=== PATIENT | male | born 1970 | race American Indian/Alaskan Native ===

== ENCOUNTER 2018-09-15 21:41 | Inpatient (IN) | payer MEDICARE, MEDICAID ==
[2018-09-15] MEDS ORDERED: Lactated Ringers 1,000 ML IV SCH (22:00)
[2018-09-15] MEDS ORDERED: Piperacillin/Tazobactam 4.5 GM in Sodium Chloride 0.9% 100 ML IV ONE (22:01)
--- NOTE | 2018-09-15 22:07 | EDM.PDOC ---
ED HPI GENERAL MEDICAL PROBLEM - General Chief Complaint: General Stated Complaint: MEDICAL [facility] Time Seen by Provider: 09/15/18 21:54 Source of Information: Reports: Patient, RN Notes Reviewed History Limitations: Reports: No Limitations - History of Present Illness INITIAL COMMENTS - FREE TEXT/NARRATIVE: 48-year-old gentleman who is a quadriplegic lives at home with family has developed a fever over the last 24 hours recently was treated with Macrobid for urinary tract infection does have suprapubic catheter states he's been having difficulty breathing feel short of breath for the last week or so no sputum production - Related Data Allergies Allergy/AdvReac Type Severity Reaction Status Date / Time vancomycin Allergy Severe Hives Verified 09/15/18 21:57 levofloxacin Allergy Rash Verified 09/15/18 21:57 Home Meds: Home Meds Acetaminophen 650 mg PO Q8H PRN 09/15/18 [History] Acetic Acid [Acetic Acid 0.25%] 1 - 100 ml IRR DAILY 09/15/18 [History] Ascorbic Acid 1,000 mg PO DAILY 09/15/18 [History] Calcium Acetate [PhosLo] 1 cap PO TID 09/15/18 [History] Cholecalciferol (Vitamin D3) [Vitamin D3] 1,000 unit PO DAILY 09/15/18 [History] Citric AC/Gluconolact/Mag Carb [Renacidin Irrigation Solution] 50 ml IRR DAILY 09/15/18 [History] Cyanocobalamin (Vitamin B-12) [Cyanocobalamin Injection] 1,000 mcg IM ASDIRECTED 09/15/18 [History] Cyclobenzaprine [Flexeril] 5 - 10 mg PO TID PRN 09/15/18 [History] DULoxetine [Cymbalta] 60 mg PO DAILY 09/15/18 [History] Desipramine HCl [Norpramin] 10 mg PO BEDTIME 09/15/18 [History] Gabapentin [Neurontin] 800 mg PO BEDTIME 09/15/18 [History] Gabapentin [Neurontin] 900 mg PO BID 09/15/18 [History] Labetalol HCl [Labetalol] 100 mg PO BID 09/15/18 [History] Loratadine 10 mg PO DAILY 09/15/18 [History] Multivitamin [Multi-Vitamin Daily] 1 each PO DAILY 09/15/18 [History] Nitrofurantoin Macrocrystal [Macrodantin] 100 mg PO BEDTIME 09/15/18 [History] Nitroglycerin [Nitrostat] 1 tab SL ASDIRECTED PRN 09/15/18 [History] Omeprazole 20 mg PO DAILY 09/15/18 [History] Rivaroxaban [Xarelto] 20 mg PO DAILY 09/15/18 [History] Sennosides/Docusate Sodium [Senna-Docusate Sodium Tablet] 2 tab PO BID PRN 09/15 [History] Solifenacin [Vesicare] 5 mg PO DAILY 09/15/18 [History] Zinc Sulfate 220 mg PO DAILY 09/15/18 [History] diphenhydrAMINE [Benadryl] 25 mg PO BEDTIME PRN 09/15/18 [History] traZODone HCl [Trazodone HCl] 50 mg PO BEDTIME PRN 09/15/18 [History] Past Medical History Cardiovascular History: Reports: Blood Clots/VTE/DVT, Hypertension Gastrointestinal History: Reports: Other (See Below) (Colostomy) Genitourinary History: Reports: Neurogenic Bladder Musculoskeletal History: Denies: None Neurological History: Reports: Other (See Below) Other Neuro History: Quadriplegia Social & Family History - Tobacco Use Smoking Status *Q: Unknown Ever Smoked ED ROS GENERAL - Review of Systems Review Of Systems: See Below Constitutional: Reports: Fever, Chills HEENT: Reports: No Symptoms Respiratory: Reports: No Symptoms Cardiovascular: Reports: No Symptoms GI/Abdominal: Reports: No Symptoms : Reports: No Symptoms (CR) Musculoskeletal: Reports: Shoulder Pain (Right) Skin: Reports: Wound (Chronic sacral ulcer) ED EXAM, GENERAL - Physical Exam Exam: See Below Free Text/Narrative:: General: Male, not in any distress however audible rhonchi are appreciated, alert and oriented x3 HEENT: head is atraumatic normocephalic, eyes pupils equal round reactive to light, sclera clear no conjunctivitis appreciated. Ears tympanic membranes clear and vega landmarks and light reflex are present bilaterally canals are clear. Nose no septal deviation, nares are clear, no blood present. Mouth mucosa is moist and pink no erythema or exudate noted in soft palate, tongue is midline uvula is midline, dentition is intact. Neck: Supple no thyromegaly no tracheal deviation. Nodes: Cervical nodes subclavicular nodes nontender no palpable lymphadenopathy noted. Lungs: Bilateral rhonchi with the lower lung solorzano CV: Regular rate and rhythm S1 and S2 appreciated no murmurs rubs or gallops noted. Abdomen: Soft, nontender, no palpable masses or organomegaly appreciated, no distention no guarding bowel sounds are present, . Neuro: Quadriplegia with minimal movement in the right arm, Skin: Warm and dry, intact Extremities: Trace edema bilaterally pedal pulse is +2. Course - Vital Signs Last Recorded V/S: Last Vital Signs Temp 100.1 F 09/15/18 23:00 Pulse 97 09/15/18 23:00 Resp 20 09/15/18 23:00 BP 119/74 09/15/18 23:00 Pulse Ox 99 09/15/18 23:00 - Orders/Labs/Meds Orders: Active Orders 24 hr Category Date Time Status EKG Documentation Completion [RC] ASDIRECTED Care 09/15/18 22:02 Active Vital Signs [RC] Q1H Care 09/15/18 22:00 Active CULTURE BLOOD [BC] Urgent Lab 09/15/18 22:30 Received CULTURE BLOOD [BC] Urgent Lab 09/15/18 22:45 Received UA W/MICROSCOPIC [URIN] Urgent Lab 09/15/18 21:59 Ordered Lactated Ringers [Ringers, Lactated] 1,000 ml Med 09/15/18 22:00 Active IV ASDIRECTED Blood Culture x2 Reflex Set [OM.PC] Urgent Oth 09/15/18 22:00 Ordered EKG 12 Lead [EK] Stat Ther 09/15/18 22:02 Ordered Medication Orders Lactated Ringer's (Ringers, Lactated) 1,000 mls @ 999 mls/hr IV ASDIRECTED ANDREI Last Admin: 09/15/18 23:30 Dose: 999 mls/hr Labs: Laboratory Tests 09/15/18 09/15/18 09/15/18 Range/Units 22:30 22:30 22:30 WBC 17.8 H (4.5-11.0) K/uL RBC 5.06 (4.30-5.90) M/uL Hgb 13.7 (12.0-15.0) g/dL Hct 43.0 (40.0-54.0) % MCV 85 (80-98) fL MCH 27 (27-31) pg MCHC 32 (32-36) % Plt Count 417 H (150-400) K/uL Neut % (Auto) 80 H (36-66) % Lymph % (Auto) 12 L (24-44) % [place] % (Auto) 7 H (2-6) % Eos % (Auto) 1 L (2-4) % Baso % (Auto) 0 (0-1) % Sodium 138 L (140-148) mmol/L Potassium 3.6 (3.6-5.2) mmol/L Chloride 102 (100-108) mmol/L Carbon Dioxide 22 (21-32) mmol/L Anion Gap 17.6 H (5.0-14.0) mmol/L BUN 9 (7-18) mg/dL Creatinine 0.6 L (0.8-1.3) mg/dL Est Cr Clr Drug Dosing 158.62 mL/min Estimated GFR (MDRD) > 60 (>60) Glucose 131 H (74-106) mg/dL Lactic Acid 3.2 H (0.4-2.0) mmol/L Calcium 8.7 (8.5-10.1) mg/dL Total Bilirubin 0.3 (0.2-1.0) mg/dL AST 19 (15-37) U/L ALT 26 (12-78) U/L Alkaline Phosphatase 135 H (46-116) U/L C-Reactive Protein 4.62 H (0.0-0.3) mg/dL NT-Pro-B Natriuret Pep (5-125) pg/mL Total Protein 8.1 (6.4-8.2) g/dL Albumin 3.0 L (3.4-5.0) g/dL Globulin 5.1 H (2.3-3.5) g/dL Albumin/Globulin Ratio 0.6 L (1.2-2.2) 09/15/18 Range/Units 22:30 WBC (4.5-11.0) K/uL RBC (4.30-5.90) M/uL Hgb (12.0-15.0) g/dL Hct (40.0-54.0) % MCV (80-98) fL MCH (27-31) pg MCHC (32-36) % Plt Count (150-400) K/uL Neut % (Auto) (36-66) % Lymph % (Auto) (24-44) % [place] % (Auto) (2-6) % Eos % (Auto) (2-4) % Baso % (Auto) (0-1) % Sodium (140-148) mmol/L Potassium (3.6-5.2) mmol/L Chloride (100-108) mmol/L Carbon Dioxide (21-32) mmol/L Anion Gap (5.0-14.0) mmol/L BUN (7-18) mg/dL Creatinine (0.8-1.3) mg/dL Est Cr Clr Drug Dosing mL/min Estimated GFR (MDRD) (>60) Glucose (74-106) mg/dL Lactic Acid (0.4-2.0) mmol/L Calcium (8.5-10.1) mg/dL Total Bilirubin (0.2-1.0) mg/dL AST (15-37) U/L ALT (12-78) U/L Alkaline Phosphatase (46-116) U/L C-Reactive Protein (0.0-0.3) mg/dL NT-Pro-B Natriuret Pep 46 (5-125) pg/mL Total Protein (6.4-8.2) g/dL Albumin (3.4-5.0) g/dL Globulin (2.3-3.5) g/dL Albumin/Globulin Ratio (1.2-2.2) Meds: Medications Generic Name Dose Route Start Last Admin Trade Name Freq PRN Reason Stop Dose Admin Lactated Ringer's 1,000 mls @ 999 mls/hr 09/15/18 22:00 09/15/18 23:30 Ringers, Lactated IV 999 mls/hr ASDIRECTED ANDREI Administration Discontinued Medications Generic Name Dose Route Start Last Admin Trade Name Freq PRN Reason Stop Dose Admin Piperacillin Sod/Tazobactam 100 mls @ 100 mls/hr 09/15/18 22:01 09/15/18 23: 30 Sod 4.5 gm/ Sodium Chloride IV 09/15/18 23:00 100 mls/hr ONETIME ONE Administration Departure - Departure Time of Disposition: 23:52 Disposition: Admitted As Inpatient 65 Condition: Fair Clinical Impression: Sepsis Qualifiers: Sepsis type: sepsis due to unspecified organism Sepsis acute organ dysfunction status: without acute organ dysfunction Qualified Code(s): A41.9 - Sepsis, unspecified organism - Discharge Information Referrals: PCP,None [Primary Care Provider] - Forms: ED Department Discharge - My Orders Last 24 Hours: My Active Orders 09/15/18 21:59 UA W/MICROSCOPIC [URIN] Urgent 09/15/18 22:00 Vital Signs [RC] Q1H Lactated Ringers [Ringers, Lactated] 1,000 ml IV ASDIRECTED Blood Culture x2 Reflex Set [OM.PC] Urgent 09/15/18 22:02 EKG Documentation Completion [RC] ASDIRECTED EKG 12 Lead [EK] Stat 09/15/18 22:30 CULTURE BLOOD [BC] Urgent 09/15/18 22:45 CULTURE BLOOD [BC] Urgent - Assessment/Plan Last 24 Hours: My Active Orders 09/15/18 21:59 UA W/MICROSCOPIC [URIN] Urgent 09/15/18 22:00 Vital Signs [RC] Q1H Lactated Ringers [Ringers, Lactated] 1,000 ml IV ASDIRECTED Blood Culture x2 Reflex Set [OM.PC] Urgent 09/15/18 22:02 EKG Documentation Completion [RC] ASDIRECTED EKG 12 Lead [EK] Stat 09/15/18 22:30 CULTURE BLOOD [BC] Urgent 09/15/18 22:45 CULTURE BLOOD [BC] Urgent Plan: Assessment Acuity = acute Site and laterality = sepsis complicated the patient with known history of quadriplegia Etiology = suspicious for urinary source Manifestations = fever Location of injury = Home Lab values = WBC elevated 17.8 consistent leukocytosis, lactic acid elevated 3.2 consistent lactic acidosis CRP elevated 4.6 to chest x-ray shows no acute process EKG demonstrates sinus rhythm there is no ST elevations or depressions T wave inversions in aVL, urinalysis pending, cultures pending Plan Called discussed case with hospitalist on-call at 23:30 kindly agreed to come and evaluate patient emergency department for admission thus far have initiated 1 L fluids have initiated antibiotics of Zosyn secondary to his levofloxacin allergy This note was dictated using [employer] voice recognition software please call with any questions on syntax or grammar.
--- NOTE | 2018-09-15 22:55 | CRLCR ---
INDICATION: Shortness of breath TECHNIQUE: Frontal view of the chest. COMPARISON: None FINDINGS: There is mild left basilar atelectasis. The lungs are otherwise clear. The cardiomediastinal silhouette is normal. There is no sizable pleural effusion or pneumothorax. Incidental note is made of chronic deformity of the medial margin of the left humerus. IMPRESSION: Mild left basilar atelectasis. No pulmonary consolidation, pleural effusion or pneumothorax. Dictated by Jhon Montes De Oca MD @ Sep 15 2018 10:53PM Signed by Dr. Jhon Montes De Oca @ Sep 15 2018 10:53PM
[2018-09-15] MEDS ORDERED: Ibuprofen 600 MG Tab PO ONE (23:49)
[2018-09-16] MEDS ORDERED: LORazepam 2 MG/ML SDV IVPUSH ONE (00:02)
--- NOTE | 2018-09-16 00:42 | PCM.HP ---
H&P History of Present Illness - General Date of Service: 09/16/18 Admit Problem/Dx: Admission Diagnosis/Problem Admission Diagnosis/Problem Acute bronchitis Source of Information: Patient, Provider History Limitations: Reports: No Limitations - History of Present Illness Initial Comments - Free Text/Narative: CC: I can't breath good HPI: Edilberto presents to the emergency room today with one week of progressive shortness of breath and loose cough. Today he developed subjective fevers at home. He felt his shortness of breath was more impressive than with the fevers he was worried about infection so he came in to get checked out. He has not been able to produce sputum so far but has a loose rattly cough that is audible throughout the room. He feels "itchy" in the lungs but does not have any pleuritic pain or chest pain. He has not had any nausea or abdominal pain. No change in output and his colostomy. He reports his urine has been clear. He does not feel like this is a urinary tract infection as he usually gets a bad headache when he has one of these. He has not had recent headaches. Appetite has been good. He does report that he may have choked on a Taco today. He does have several sick contacts with nieces and nephews who have had recent respiratory infections. Workup in the emergency room was concerning for sepsis with tachycardia, lactic acidosis. Urine is still not collected. Chest x-ray clear but exam consistent with acute bronchitis and the patient is hypoxic requiring supplemental oxygen. He has leukocytosis and fever. Blood cultures have been obtained. Broad- spectrum antibiotics administered. He will be admitted for further management. - Related Data Allergies/Adverse Reactions: Allergies Allergy/AdvReac Type Severity Reaction Status Date / Time vancomycin Allergy Severe Hives Verified 09/15/18 21:57 levofloxacin Allergy Rash Verified 09/15/18 21:57 Home Medications: Home Meds Acetaminophen 650 mg PO Q8H PRN 09/15/18 [History] Acetic Acid [Acetic Acid 0.25%] 1 - 100 ml IRR DAILY 09/15/18 [History] Ascorbic Acid 1,000 mg PO DAILY 09/15/18 [History] Calcium Acetate [PhosLo] 1 cap PO TID 09/15/18 [History] Cholecalciferol (Vitamin D3) [Vitamin D3] 1,000 unit PO DAILY 09/15/18 [History] Citric AC/Gluconolact/Mag Carb [Renacidin Irrigation Solution] 50 ml IRR DAILY 09/15/18 [History] Cyanocobalamin (Vitamin B-12) [Cyanocobalamin Injection] 1,000 mcg IM ASDIRECTED 09/15/18 [History] Cyclobenzaprine [Flexeril] 5 - 10 mg PO TID PRN 09/15/18 [History] DULoxetine [Cymbalta] 60 mg PO DAILY 09/15/18 [History] Desipramine HCl [Norpramin] 10 mg PO BEDTIME 09/15/18 [History] Gabapentin [Neurontin] 800 mg PO BEDTIME 09/15/18 [History] Gabapentin [Neurontin] 900 mg PO BID 09/15/18 [History] Labetalol HCl [Labetalol] 100 mg PO BID 09/15/18 [History] Loratadine 10 mg PO DAILY 09/15/18 [History] Multivitamin [Multi-Vitamin Daily] 1 each PO DAILY 09/15/18 [History] Nitrofurantoin Macrocrystal [Macrodantin] 100 mg PO BEDTIME 09/15/18 [History] Nitroglycerin [Nitrostat] 1 tab SL ASDIRECTED PRN 09/15/18 [History] Omeprazole 20 mg PO DAILY 09/15/18 [History] Rivaroxaban [Xarelto] 20 mg PO QPM 09/15/18 [History] Sennosides/Docusate Sodium [Senna-Docusate Sodium Tablet] 2 tab PO BID PRN 09/15 [History] Solifenacin [Vesicare] 5 mg PO DAILY 09/15/18 [History] Zinc Sulfate 220 mg PO DAILY 09/15/18 [History] diphenhydrAMINE [Benadryl] 25 mg PO BEDTIME PRN 09/15/18 [History] traZODone HCl [Trazodone HCl] 50 mg PO BEDTIME PRN 09/15/18 [History] Past Medical History Cardiovascular History: Reports: Blood Clots/VTE/DVT, Hypertension Gastrointestinal History: Reports: Other (See Below) (Colostomy) Genitourinary History: Reports: Neurogenic Bladder Musculoskeletal History: Denies: None Other Musculoskeletal History: quadriplegia Neurological History: Reports: Other (See Below) Other Neuro History: Quadriplegia Psychiatric History: Reports: Depression Endocrine/Metabolic History: Reports: Obesity/BMI 30+ Dermatologic History: Reports: Other (See Below) Other Dermatologic History: 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 cystostomy with drainage - Past Surgical History GI Surgical History: Reports: Colostomy Male Surgical History: Reports: Suprapubic Catheter Placement Social & Family History - Family History Cardiac: Denies: CAD - Tobacco Use Smoking Status *Q: Unknown Ever Smoked - Alcohol Use Alcohol Use History: No - Recreational Drug Use Recreational Drug Use: No H&P Review of Systems - Review of Systems: Review Of Systems: See Below Free Text/Narrative: A complete 12 point review of systems was obtained. Pertinent positives and negatives are noted in the history of present illness. All other systems were reviewed and were negative except as noted. Exam - Exam Exam: See Below - Vital Signs Vital Signs: Last Vital Signs Temp 37.8 C 09/15/18 23:00 Pulse 97 09/15/18 23:00 Resp 20 09/15/18 23:00 BP 119/74 09/15/18 23:00 Pulse Ox 99 09/15/18 23:00 Weight: 113.398 kg - Exam Quality Assessment: Supplemental Oxygen General: Alert, Oriented, Cooperative. No: Mild Distress HEENT: Conjunctiva Clear. No: Mucosa Moist & [place] (dry), Scleral Icterus Neck: Supple, Trachea Midline. No: Lymphadenopathy Lungs: Normal Respiratory Effort, Rhonchi (diffuse upper airway ) Cardiovascular: Regular Rhythm, Tachycardia. No: Systolic Murmur GI/Abdominal Exam: Normal Bowel Sounds, Soft, Non-Tender, No Distention, Other ( suprapubic catheter ) Extremities: No Pedal Edema. No: Increased Warmth Peripheral Pulses: 2+: Dorsalis Pedis (L), Dorsalis Pedis (R) Skin: Warm, Dry, Wound (black eschar right plantar surface at head of 1st metatarsal. Callus on left foot laterally at head of 5th metatarsal. both lesions are about 2 cm in diameter ) Neuro Extensive - Mental Status: Alert, Oriented x3, Nl Response to Commands Neuro Extensive - Motor, Sensory, Reflexes: Dysarthria (mild), Abnormal Motor ( can't move legs or left arm. Able to move right arm slightly. ). No: Tremor Psychiatric: Alert, Normal Affect - Patient Data Lab Results Last 24 hrs: Laboratory Results - last 24 hr 09/15/18 09/15/18 09/15/18 Range/Units 22:30 22:30 22:30 WBC 17.8 H (4.5-11.0) K/uL RBC 5.06 (4.30-5.90) M/uL Hgb 13.7 (12.0-15.0) g/dL Hct 43.0 (40.0-54.0) % MCV 85 (80-98) fL MCH 27 (27-31) pg MCHC 32 (32-36) % Plt Count 417 H (150-400) K/uL Neut % (Auto) 80 H (36-66) % Lymph % (Auto) 12 L (24-44) % [place] % (Auto) 7 H (2-6) % Eos % (Auto) 1 L (2-4) % Baso % (Auto) 0 (0-1) % Sodium 138 L (140-148) mmol/L Potassium 3.6 (3.6-5.2) mmol/L Chloride 102 (100-108) mmol/L Carbon Dioxide 22 (21-32) mmol/L Anion Gap 17.6 H (5.0-14.0) mmol/L BUN 9 (7-18) mg/dL Creatinine 0.6 L (0.8-1.3) mg/dL Est Cr Clr Drug Dosing 158.62 mL/min Estimated GFR (MDRD) > 60 (>60) Glucose 131 H (74-106) mg/dL Lactic Acid 3.2 H (0.4-2.0) mmol/L Calcium 8.7 (8.5-10.1) mg/dL Total Bilirubin 0.3 (0.2-1.0) mg/dL AST 19 (15-37) U/L ALT 26 (12-78) U/L Alkaline Phosphatase 135 H (46-116) U/L C-Reactive Protein 4.62 H (0.0-0.3) mg/dL NT-Pro-B Natriuret Pep (5-125) pg/mL Total Protein 8.1 (6.4-8.2) g/dL Albumin 3.0 L (3.4-5.0) g/dL Globulin 5.1 H (2.3-3.5) g/dL Albumin/Globulin Ratio 0.6 L (1.2-2.2) 09/15/18 Range/Units 22:30 WBC (4.5-11.0) K/uL RBC (4.30-5.90) M/uL Hgb (12.0-15.0) g/dL Hct (40.0-54.0) % MCV (80-98) fL MCH (27-31) pg MCHC (32-36) % Plt Count (150-400) K/uL Neut % (Auto) (36-66) % Lymph % (Auto) (24-44) % [place] % (Auto) (2-6) % Eos % (Auto) (2-4) % Baso % (Auto) (0-1) % Sodium (140-148) mmol/L Potassium (3.6-5.2) mmol/L Chloride (100-108) mmol/L Carbon Dioxide (21-32) mmol/L Anion Gap (5.0-14.0) mmol/L BUN (7-18) mg/dL Creatinine (0.8-1.3) mg/dL Est Cr Clr Drug Dosing mL/min Estimated GFR (MDRD) (>60) Glucose (74-106) mg/dL Lactic Acid (0.4-2.0) mmol/L Calcium (8.5-10.1) mg/dL Total Bilirubin (0.2-1.0) mg/dL AST (15-37) U/L ALT (12-78) U/L Alkaline Phosphatase (46-116) U/L C-Reactive Protein (0.0-0.3) mg/dL NT-Pro-B Natriuret Pep 46 (5-125) pg/mL Total Protein (6.4-8.2) g/dL Albumin (3.4-5.0) g/dL Globulin (2.3-3.5) g/dL Albumin/Globulin Ratio (1.2-2.2) Result Diagrams: 09/15/18 22:30 09/15/18 22:30 Imaging Impressions Last 24 hrs: Chest x-ray - images personally reviewed - lungs are clear with no obvious mass , infiltrate or effusion. EKG INTERPRETATION EKG Date: 09/15/18 Rhythm: NSR Rate (Beats/Min): 97 [place]: Normal P-Wave: Present QRS: Normal ST-T: Normal QT: Normal EKG Interpretation Comments: EKG image was personally reviewed in the emergency room today *Q Meaningful Use (ADM) - VTE Risk Assess *Q Each Risk Factor Represents 1 Point: Age 41 - 59 years, Obesity ( BMI > 25 kg/m2 ), Sepsis, Serious lung disease including pneumonia Total Score 1 Point Risk Factors: 4 Each Risk Factor Represents 2 Points: None Total Score 2 Point Risk Factors: 0 Each Risk Factor Represents 3 Points: History of DVT/PE Total Score 3 Point Risk Factors: 3 Each Risk Factor Represents 5 Points: None Total Score 5 Point Risk Factors: 0 Venous Thromboembolism Risk Factor Score *Q: 7 - Problem List (1) Acute bronchitis SNOMED Code(s): 56165567 ICD Code: J20.9 - ACUTE BRONCHITIS, UNSPECIFIED Status: Acute Current Visit: Yes Qualifiers: Bronchitis organism: unspecified organism Qualified Code(s): J20.9 - Acute bronchitis, unspecified (2) Sepsis SNOMED Code(s): 69147651 ICD Code: A41.9 - SEPSIS, UNSPECIFIED ORGANISM Status: Acute Current Visit: Yes Qualifiers: Sepsis type: sepsis due to unspecified organism Sepsis acute organ dysfunction status: without acute organ dysfunction Qualified Code(s): A41.9 - Sepsis, unspecified organism (3) Acute respiratory failure with hypoxia SNOMED Code(s): 88344118, 416542923 ICD Code: J96.01 - ACUTE RESPIRATORY FAILURE WITH HYPOXIA Status: Acute Current Visit: Yes (4) Quadriplegia following spinal cord injury SNOMED Code(s): 96029994 ICD Code: G82.50 - QUADRIPLEGIA, UNSPECIFIED Status: Chronic Current Visit: Yes (5) Neurogenic bladder SNOMED Code(s): 657888139 ICD Code: N31.9 - NEUROMUSCULAR DYSFUNCTION OF BLADDER, UNSPECIFIED Status : Chronic Current Visit: Yes Problem List Initiated/Reviewed/Updated: Yes Orders Last 24hrs: Active Orders 24 hr Category Date Time Status Patient Status Manage Transfer [TRANSFER] Routine ADT 09/16/18 00:31 Active EKG Documentation Completion [RC] ASDIRECTED Care 09/15/18 22:02 Active Vital Signs [RC] Q1H Care 09/15/18 22:00 Active CULTURE BLOOD [BC] Urgent Lab 09/15/18 22:30 Received CULTURE BLOOD [BC] Urgent Lab 09/15/18 22:45 Received UA W/MICROSCOPIC [URIN] Urgent Lab 09/15/18 21:59 Ordered Lactated Ringers [Ringers, Lactated] 1,000 ml Med 09/15/18 22:00 Active IV ASDIRECTED Blood Culture x2 Reflex Set [OM.PC] Urgent Oth 09/15/18 22:00 Ordered Resuscitation Status Routine Resus Stat 09/16/18 00:33 Ordered EKG 12 Lead [EK] Stat Ther 09/15/18 22:02 Ordered Medication Orders Lactated Ringer's (Ringers, Lactated) 1,000 mls @ 999 mls/hr IV ASDIRECTED ANDREI Last Admin: 09/15/18 23:30 Dose: 999 mls/hr Assessment/Plan Comment:: ASSESSMENT AND PLAN - Acute bronchitis with sepsis - also complicated by acute respiratory failure with hypoxia. Source of sepsis could less likely be the bladder with a chronic suprapubic catheter but patient does not feel symptoms are compatible and he reports urine has been clear recently. He is hypoxic and has a loose cough. He has potential sick contacts. He has had recent antibiotics. -Antibiotic coverage with Pip/Tazo and azithromycin -Supplement oxygen -IV fluids -Nebs starting in the morning -Repeat lactic acid level after hydration -Follow-up urine sample to rule this out as a source of infection Quadriplegia as the result of a traumatic injury - accident happened in 2009. Minimal movement of right arm but no movement of left arm or legs. 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 -Continue home medications Sacral ulcer - patient reports this is chronic and slowly healing. -Local wound cares Foot ulceration and callus - left foot has a large callus on the lateral portion and right foot has a large eschar on the medial portion. Seem to be related to chronic pressure issues. 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 I reasonably expect the patient will require inpatient services that span a period time over 2 midnights. I reasonably expect this patient to be discharged or transferred within 96 hours after admission to the [facility]. Disposition - I would anticipate discharge home after the hospital stay Primary care physician - Dr. Jorge in [place] Wilmer Castillo M.D.
[2018-09-16] MEDS ORDERED: Albuterol 0.083% 2.5 MG/3 ML Neb Soln NEB PRN (01:32)
[2018-09-16] MEDS ORDERED: Ondansetron 4 MG/2 ML SDV IV PRN (01:32)
[2018-09-16] MEDS ORDERED: Magnesium Hydroxide 400 MG/5 ML Susp 30 ML Cup PO PRN (01:32)
[2018-09-16] MEDS ORDERED: Ibuprofen 600 MG Tab PO PRN (01:32)
[2018-09-16] MEDS ORDERED: Acetaminophen 325 MG Tab PO PRN (01:32)
[2018-09-16] MEDS ORDERED: Cyclobenzaprine 10 MG Tab PO PRN (01:32)
[2018-09-16] MEDS ORDERED: LORazepam 2 MG/ML SDV IVPUSH PRN (01:32)
[2018-09-16] MEDS ORDERED: Ondansetron 4 MG Tab.DIS PO PRN (01:32)
[2018-09-16] MEDS: Sodium Chloride 0.9% 1,000 ML IV SCH ×3 (01:56→19:25)
[2018-09-16] MEDS: Azithromycin 500 MG in Sodium Chloride 0.9% 250 ML IV SCH (02:01)
[2018-09-16] MEDS ORDERED: Piperacillin/Tazobactam 3.375 GM in Sodium Chloride 0.9% 50 ML IV SCH (05:00)
[2018-09-16] MEDS ORDERED: Albuterol/Ipratropium 3.0-0.5 MG/3 ML Neb Soln NEB SCH (06:00)
[2018-09-16] MEDS ORDERED: Albuterol 0.083% 2.5 MG/3 ML Neb Soln NEB SCH (07:00)
[2018-09-16] MEDS: Albuterol/Ipratropium 3.0-0.5 MG/3 ML Neb Soln NEB SCH ×4 (07:03→20:42)
[2018-09-16] MEDS: DULoxetine 30 MG Cap PO SCH (10:21)
[2018-09-16] MEDS: Pantoprazole 40 MG Tab.CR PO SCH (10:22)
[2018-09-16] MEDS: Gabapentin 300 MG Cap PO SCH ×2 (10:22→15:45)
[2018-09-16] MEDS: Trospium 20 MG Tab PO SCH ×2 (10:22→20:42)
[2018-09-16] MEDS: Labetalol 100 MG Tab PO SCH ×2 (10:22→20:40)
[2018-09-16] MEDS: Piperacillin/Tazobactam/Dext 3.375 GM in Premix Bag 1 BAG IV SCH ×3 (10:25→23:43)
[2018-09-16] MEDS: Codeine/guaiFENesin 100mg-10 MG/5 ML Syrup 10 ML Cup PO PRN (11:03)
[2018-09-16] MEDS ORDERED: Albuterol 0.083% 2.5 MG/3 ML Neb Soln NEB ONE (12:15)
[2018-09-16] MEDS ORDERED: Albuterol 0.083% 2.5 MG/3 ML Neb Soln ONE (12:20)
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
[2018-09-16] MEDS: Acetylcysteine 20% 200 MG/ML 4 ML Nebulizer Soln SDV NEB SCH ×3 (12:31→20:42)
[2018-09-16] MEDS ORDERED: Lidocaine 2% Viscous Solution 15 ML Cup ONE (13:21)
[2018-09-16] MEDS ORDERED: Lidocaine 4% Top Soln 50 ML Bottle ONE (13:21)
[2018-09-16] MEDS ORDERED: Lidocaine 4% Top Soln LTA 4 ML Syringe Kit ONE (13:24)
[2018-09-16] MEDS ORDERED: fentaNYL 100 MCG/2 ML SDV ONE (13:25)
[2018-09-16] MEDS ORDERED: Propofol 200 MG/20 ML SDV ONE (13:25)
[2018-09-16] MEDS ORDERED: Midazolam 1 MG/ML 2 ML SDV ONE (13:25)
[2018-09-16] MEDS: Rivaroxaban 10 MG Tab PO SCH (16:19)
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
[2018-09-16] MEDS: Gabapentin 400 MG Cap PO SCH (20:39)
[2018-09-17] MEDS: Azithromycin 500 MG in Sodium Chloride 0.9% 250 ML IV SCH (02:17)
[2018-09-17] MEDS: Piperacillin/Tazobactam/Dext 3.375 GM in Premix Bag 1 BAG IV SCH ×4 (04:16→22:06)
[2018-09-17] MEDS: Acetylcysteine 20% 200 MG/ML 4 ML Nebulizer Soln SDV NEB SCH ×4 (07:16→20:03)
[2018-09-17] MEDS: Albuterol/Ipratropium 3.0-0.5 MG/3 ML Neb Soln NEB SCH ×4 (07:16→20:03)
[2018-09-17] MEDS: Pantoprazole 40 MG Tab.CR PO SCH (09:07)
[2018-09-17] MEDS: Trospium 20 MG Tab PO SCH ×2 (09:07→20:13)
[2018-09-17] MEDS: DULoxetine 30 MG Cap PO SCH (09:08)
[2018-09-17] MEDS: Gabapentin 300 MG Cap PO SCH ×2 (09:08→17:13)
[2018-09-17] MEDS: Labetalol 100 MG Tab PO SCH ×2 (09:13→20:12)
--- NOTE | 2018-09-17 11:50 | PCM.PN ---
- General Info Date of Service: 09/17/18 Subjective Update: No acute events overnight. Patient did report improvement in respiratory symptoms after the bronchoscopy yesterday afternoon. Secretions and cough for a little bit more intense this morning than last night but not as bad as yesterday. No complaints of chest pain, abdominal pain or nausea. No fevers. Cultures are negative so far. Respiratory samples yesterday revealed gram- negative diplococci on Gram stain. Identification pending. Vital signs stable. Functional Status: Reports: Pain Controlled, Tolerating Diet - Review of Systems General: Denies: Fever Pulmonary: Reports: Cough - Patient Data Vitals - Most Recent: Last Vital Signs Temp 35.8 C 09/17/18 07:00 Pulse 98 09/17/18 10:49 Resp 18 09/17/18 07:00 BP 116/74 09/17/18 07:00 Pulse Ox 96 09/17/18 07:00 Weight - Most Recent: 113.398 kg I&O - Last 24 Hours: Intake & Output 09/16/18 09/17/18 09/17/18 22:59 06:59 14:59 Intake Total 1435 2619 400 Output Total 200 1550 400 Balance 1235 1069 0 Lab Results Last 24 Hours: Laboratory Results - last 24 hr 09/17/18 09/17/18 Range/Units 05:00 05:00 WBC 18.1 H (4.5-11.0) K/uL RBC 4.27 L (4.30-5.90) M/uL Hgb 11.4 L (12.0-15.0) g/dL Hct 37.1 L (40.0-54.0) % MCV 87 (80-98) fL MCH 27 (27-31) pg MCHC 31 L (32-36) % Plt Count 346 (150-400) K/uL Sodium 139 L (140-148) mmol/L Potassium 3.8 (3.6-5.2) mmol/L Chloride 106 (100-108) mmol/L Carbon Dioxide 23 (21-32) mmol/L Anion Gap 13.8 (5.0-14.0) mmol/L BUN 5 L (7-18) mg/dL Creatinine 0.5 L (0.8-1.3) mg/dL Est Cr Clr Drug Dosing 189.56 mL/min Estimated GFR (MDRD) > 60 (>60) Glucose 126 H (74-106) mg/dL Calcium 8.2 L (8.5-10.1) mg/dL José Results Last 24 Hours: Microbiology 09/16/18 03:10 Urine Culture - Preliminary Urine, Catheterized 09/15/18 22:30 Aerobic Blood Culture - Preliminary Blood - Venous NO GROWTH AFTER 1 DAY Anaerobic Blood Culture - Preliminary NO GROWTH AFTER 1 DAY 09/15/18 22:45 Aerobic Blood Culture - Preliminary Blood - Venous - Lab Draw NO GROWTH AFTER 1 DAY Anaerobic Blood Culture - Preliminary NO GROWTH AFTER 1 DAY 09/16/18 14:34 MARIA ISABEL Preparation - Final Other - Bronchoaveolar 09/16/18 14:50 MARIA ISABEL Preparation - Final Other - Bronchoaveolar 09/16/18 14:34 Gram Stain - Final Bronchial Alveolar Lavage - Left Lower Lobe 09/16/18 14:40 Gram Stain - Final Bronchial Alveolar Lavage Med Orders - Current: Current Medications Acetaminophen (Tylenol) 650 mg PO Q4H PRN PRN Reason: Pain (Mild 1-3)/fever Last Admin: 09/17/18 01:16 Dose: 650 mg Acetylcysteine (Mucomyst 20%) 200 mg NEB QIDRT [facility] Last Admin: 09/17/18 10:48 Dose: 200 mg Albuterol/Ipratropium (Duoneb 3.0-0.5 Mg/3 Ml) 3 ml NEB QIDRT [facility] Last Admin: 09/17/18 10:48 Dose: 3 ml Cyclobenzaprine HCl (Flexeril) 10 mg PO TID PRN PRN Reason: Spasms Desipramine HCl (Desipramine) 10 mg PO BEDTIME [facility] Last Admin: 09/16/18 20:39 Dose: Not Given Duloxetine HCl (Cymbalta) 60 mg PO DAILY [facility] Last Admin: 09/17/18 09:08 Dose: 60 mg Gabapentin (Neurontin) 900 mg PO BID@0900,1500 [facility] Last Admin: 09/17/18 09:08 Dose: 900 mg Gabapentin (Neurontin) 800 mg PO BEDTIME [facility] Last Admin: 09/16/18 20:39 Dose: 800 mg Guaifenesin/Codeine Phosphate (Robitussin Ac) 10 ml PO Q4H PRN PRN Reason: Cough Last Admin: 09/16/18 11:03 Dose: 10 ml Azithromycin 500 mg/ Sodium (Chloride) 250 mls @ 250 mls/hr IV Q24H [facility] Last Admin: 09/17/18 02:17 Dose: 250 mls/hr Piperacillin/Tazobactam/ (Dextrose 3.375 gm/ Premix) 50 mls @ 100 mls/hr IV Q6H [facility] Last Admin: 09/17/18 11:25 Dose: 100 mls/hr Sodium Chloride (Normal Saline) 1,000 mls @ 25 mls/hr IV ASDIRECTED [facility] Last Admin: 09/16/18 19:25 Dose: 25 mls/hr Ibuprofen (Motrin) 600 mg PO Q6H PRN PRN Reason: Pain/Fever Labetalol HCl (Normodyne) 100 mg PO BID [facility] Last Admin: 09/17/18 09:13 Dose: Not Given Lorazepam (Ativan) 0.5 mg IVPUSH Q4H PRN PRN Reason: Nausea/Vomiting Last Admin: 09/16/18 09:07 Dose: 0.5 mg Magnesium Hydroxide (Milk Of Magnesia) 30 ml PO Q12H PRN PRN Reason: Constipation Ondansetron HCl (Zofran Odt) 4 mg PO Q6H PRN PRN Reason: Nausea able to take PO Ondansetron HCl (Zofran) 4 mg IV Q6H PRN PRN Reason: Nausea/Vomiting Pantoprazole Sodium (Protonix) 40 mg PO ACBREAKFAST [facility] Last Admin: 09/17/18 09:07 Dose: 40 mg Rivaroxaban (Xarelto) 20 mg PO QPM [facility] Last Admin: 09/16/18 16:19 Dose: 20 mg Senna/Docusate Sodium (Senna Plus) 2 tab PO BID PRN PRN Reason: Constipation Trospium (Sanctura) 20 mg PO BID [facility] Last Admin: 09/17/18 09:07 Dose: 20 mg Discontinued Medications Albuterol (Proventil Neb Soln) 2.5 mg NEB Q4H PRN PRN Reason: Shortness Of Breath/wheezing Albuterol (Proventil Neb Soln) Confirm Administered Dose 2.5 mg .ROUTE .STK-MED ONE Stop: 09/16/18 12:21 Last Admin: 09/16/18 12:31 Dose: 2.5 mg Albuterol (Proventil Neb Soln) 2.5 mg NEB ONETIME ONE Stop: 09/16/18 12:16 Last Admin: 09/16/18 12:15 Dose: 2.5 mg Fentanyl (Sublimaze) Confirm Administered Dose 100 mcg .ROUTE .STK-MED ONE Stop: 09/16/18 13:26 Lactated Ringer's (Ringers, Lactated) 1,000 mls @ 999 mls/hr IV ASDIRECTED [facility] Last Admin: 09/15/18 23:30 Dose: 999 mls/hr Piperacillin Sod/Tazobactam (Sod 4.5 gm/ Sodium Chloride) 100 mls @ 100 mls/hr IV ONETIME ONE Stop: 09/15/18 23:00 Last Admin: 09/15/18 23:30 Dose: 100 mls/hr Piperacillin Sod/Tazobactam (Sod 3.375 gm/ Sodium Chloride) 50 mls @ 100 mls/ hr IV Q6H [facility] Last Admin: 09/16/18 04:37 Dose: 100 mls/hr Sodium Chloride (Normal Saline) 1,000 mls @ 125 mls/hr IV ASDIRECTED [facility] Last Admin: 09/16/18 12:16 Dose: 125 mls/hr Ibuprofen (Motrin) 600 mg PO ONETIME ONE Stop: 09/15/18 23:50 Last Admin: 09/16/18 00:01 Dose: 600 mg Lidocaine (Lta 360 Kit Top Soln) Confirm Administered Dose 4 ml .ROUTE .STK-MED ONE Stop: 09/16/18 13:25 Lidocaine HCl (Xylocaine 2% Viscous) Confirm Administered Dose 15 ml .ROUTE .STK -MED ONE Stop: 09/16/18 13:22 Last Admin: 09/16/18 14:00 Dose: 15 ml Lidocaine HCl (Xylocaine 4% Top Soln) Confirm Administered Dose 50 ml .ROUTE .STK-MED ONE Stop: 09/16/18 13:22 Last Admin: 09/16/18 14:00 Dose: 50 ml Lorazepam (Ativan) 1 mg IVPUSH ONETIME ONE Stop: 09/16/18 00:03 Last Admin: 09/16/18 00:08 Dose: 1 mg Midazolam HCl (Versed 1 Mg/Ml) Confirm Administered Dose 2 mg .ROUTE .STK-MED ONE Stop: 09/16/18 13:26 Propofol (Diprivan 20 Ml) Confirm Administered Dose 200 mg .ROUTE .K-MED ONE Stop: 09/16/18 13:26 - Exam Quality Assessment: Supplemental Oxygen General: Alert, Oriented, Cooperative, No Acute Distress Lungs: Normal Respiratory Effort, Rhonchi (diffuse upper airway throughout ). No: Wheezing Cardiovascular: Regular Rate, Regular Rhythm GI/Abdominal Exam: Soft, No Distention Extremities: No Pedal Edema. No: Increased Warmth Psy/Mental Status: Alert, Normal Affect - Problem List & Annotations (1) Acute bronchitis SNOMED Code(s): 44564684 Code(s): J20.9 - ACUTE BRONCHITIS, UNSPECIFIED Status: Acute Current Visit: Yes Qualifiers: Bronchitis organism: unspecified organism Qualified Code(s): J20.9 - Acute bronchitis, unspecified (2) Sepsis SNOMED Code(s): 23453752 Code(s): A41.9 - SEPSIS, UNSPECIFIED ORGANISM Status: Acute Current Visit : Yes Qualifiers: Sepsis type: sepsis due to unspecified organism Sepsis acute organ dysfunction status: without acute organ dysfunction Qualified Code(s): A41.9 - Sepsis, unspecified organism (3) Acute respiratory failure with hypoxia SNOMED Code(s): 56669753, 993661454 Code(s): J96.01 - ACUTE RESPIRATORY FAILURE WITH HYPOXIA Status: Acute Current Visit: Yes (4) Quadriplegia following spinal cord injury SNOMED Code(s): 77211619 Code(s): G82.50 - QUADRIPLEGIA, UNSPECIFIED Status: Chronic Current Visit : Yes (5) Neurogenic bladder SNOMED Code(s): 207885962 Code(s): N31.9 - NEUROMUSCULAR DYSFUNCTION OF BLADDER, UNSPECIFIED Status: Chronic Current Visit: Yes - Problem List Review Problem List Initiated/Reviewed/Updated: Yes - My Orders Last 24 Hours: My Active Orders 09/16/18 11:00 Piperacillin/Tazobactam/Dext [Zosyn in Dextrose Iso-Osmotic 3.375 GM] 3.375 gm Premix Bag 1 bag IV Q6H 09/16/18 11:42 RT Suction Nasopharyngeal [RESPCARE] Routine 09/16/18 11:47 Urinary Catheter Assessment [RC] Q12H 09/16/18 12:00 Insert Morel Catheter [Insert Urinary Catheter] [OM.PC] Q24H 09/16/18 12:30 Acetylcysteine [Mucomyst 20%] 200 mg NEB QIDRT Sodium Chloride 0.9% [Normal Saline] 1,000 ml IV ASDIRECTED 09/16/18 14:34 ACID FAST SMEAR+CULTURE W/RFLX Urgent CULTURE RESPIRATORY + SMEAR [RM] Routine 09/16/18 14:50 CULTURE FUNGAL [MYC] Routine 09/16/18 14:57 Notify Provider Consults [RC] ASDIRECTED Consult to Physician [CONS] Routine 09/16/18 17:00 Rivaroxaban [Xarelto] 20 mg PO QPM 09/16/18 21:00 Desipramine 10 mg PO BEDTIME Gabapentin [Neurontin] 800 mg PO BEDTIME 09/17/18 10:29 RT Aerosol Therapy [RC] ASDIRECTED 09/17/18 12:00 guaiFENesin [Mucinex] 600 mg PO BID 09/18/18 05:00 BASIC METABOLIC PANEL,BMP [CHEM] Timed CBC W/O DIFF,HEMOGRAM [HEME] Timed (1) - Plan Plan:: ASSESSMENT AND PLAN - Acute bronchitis with sepsis - sepsis seems to have resolved. Secretions better after bronchoscopy yesterday. Gram stain from secretions revealed gram-negative diplococci but identification is pending. White blood cell count is slightly higher today but otherwise clinically he is improving. -Antibiotic coverage with Pip/Tazo and azithromycin -Follow-up cultures from bronchoscopy -Twice daily guaifenesin -Supplement oxygen -IV fluids at to keep open -Mucomyst and duo nebs Quadriplegia as the result of a traumatic injury - accident happened in 2009. Minimal movement of right arm but no movement of left arm or legs. 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 -Continue home medications Sacral ulcer - patient reports this is chronic and slowly healing. -Local wound cares Foot ulceration and callus - left foot has a large callus on the lateral portion and right foot has a large eschar on the medial portion. Seem to be related to chronic pressure issues. 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 Jorge in [place] Wilmer Castillo M.D.
[2018-09-17] MEDS: guaiFENesin 600 MG Tab.ER PO SCH ×2 (13:49→20:12)
[2018-09-17] MEDS: Rivaroxaban 10 MG Tab PO SCH (17:13)
[2018-09-17] MEDS: Gabapentin 400 MG Cap PO SCH (20:12)
[2018-09-18] MEDS: Azithromycin 500 MG in Sodium Chloride 0.9% 250 ML IV SCH (02:27)
[2018-09-18] MEDS: Piperacillin/Tazobactam/Dext 3.375 GM in Premix Bag 1 BAG IV SCH ×4 (04:06→22:40)
[2018-09-18] MEDS: Albuterol/Ipratropium 3.0-0.5 MG/3 ML Neb Soln NEB SCH ×4 (07:18→20:27)
[2018-09-18] MEDS: Acetylcysteine 20% 200 MG/ML 4 ML Nebulizer Soln SDV NEB SCH ×4 (07:18→20:28)
[2018-09-18] MEDS: DULoxetine 30 MG Cap PO SCH (09:54)
[2018-09-18] MEDS: Gabapentin 300 MG Cap PO SCH ×2 (09:54→15:03)
[2018-09-18] MEDS: Pantoprazole 40 MG Tab.CR PO SCH (09:54)
[2018-09-18] MEDS: guaiFENesin 600 MG Tab.ER PO SCH ×2 (09:54→20:28)
[2018-09-18] MEDS: Trospium 20 MG Tab PO SCH ×2 (09:54→20:31)
[2018-09-18] MEDS: Labetalol 100 MG Tab PO SCH ×2 (09:55→20:29)
--- NOTE | 2018-09-18 11:22 | PCM.PN ---
- General Info Date of Service: 09/18/18 Subjective Update: No acute events overnight. Respiratory status has steadily continued to improve. Only mild difficulty with secretions today. He was off supplemental oxygen as of this morning. Cough has been mild. No abdominal pain or fevers. White blood cell count trending down. Urine culture did grow out an ESBL Klebsiella. Respiratory cultures are still pending. Functional Status: Reports: Pain Controlled, Tolerating Diet - Review of Systems General: Denies: Fever Pulmonary: Reports: Shortness of Breath, Cough - Patient Data Vitals - Most Recent: Last Vital Signs Temp 36.1 C 09/18/18 09:17 Pulse 90 09/18/18 11:20 Resp 16 09/18/18 09:17 BP 147/108 H 09/18/18 09:55 Pulse Ox 98 09/18/18 09:17 Weight - Most Recent: 113.398 kg I&O - Last 24 Hours: Intake & Output 09/17/18 09/18/18 09/18/18 22:59 06:59 14:59 Intake Total 370 2405 Output Total 500 750 Balance -130 1655 Lab Results Last 24 Hours: Laboratory Results - last 24 hr 09/18/18 09/18/18 Range/Units 05:32 05:32 WBC 13.9 H (4.5-11.0) K/uL RBC 4.43 (4.30-5.90) M/uL Hgb 11.8 L (12.0-15.0) g/dL Hct 38.6 L (40.0-54.0) % MCV 87 (80-98) fL MCH 27 (27-31) pg MCHC 31 L (32-36) % Plt Count 354 (150-400) K/uL Sodium 139 L (140-148) mmol/L Potassium 4.0 (3.6-5.2) mmol/L Chloride 105 (100-108) mmol/L Carbon Dioxide 25 (21-32) mmol/L Anion Gap 13.0 (5.0-14.0) mmol/L BUN 5 L (7-18) mg/dL Creatinine 0.4 L (0.8-1.3) mg/dL Est Cr Clr Drug Dosing 236.95 mL/min Estimated GFR (MDRD) > 60 (>60) Glucose 111 H (74-106) mg/dL Calcium 8.4 L (8.5-10.1) mg/dL José Results Last 24 Hours: Microbiology 09/16/18 03:10 Urine Culture - Final Urine, Catheterized (Esbl) Klebsiella Pneumonia 09/15/18 22:45 Aerobic Blood Culture - Preliminary Blood - Venous - Lab Draw NO GROWTH AFTER 2 DAYS Anaerobic Blood Culture - Preliminary NO GROWTH AFTER 2 DAYS 09/15/18 22:30 Aerobic Blood Culture - Preliminary Blood - Venous NO GROWTH AFTER 2 DAYS Anaerobic Blood Culture - Preliminary NO GROWTH AFTER 2 DAYS Med Orders - Current: Current Medications Acetaminophen (Tylenol) 650 mg PO Q4H PRN PRN Reason: Pain (Mild 1-3)/fever Last Admin: 09/17/18 01:16 Dose: 650 mg Acetylcysteine (Mucomyst 20%) 200 mg NEB QIDRT [facility] Last Admin: 09/18/18 11:19 Dose: 200 mg Albuterol/Ipratropium (Duoneb 3.0-0.5 Mg/3 Ml) 3 ml NEB QIDRT [facility] Last Admin: 09/18/18 11:18 Dose: 3 ml Cyclobenzaprine HCl (Flexeril) 10 mg PO TID PRN PRN Reason: Spasms Desipramine HCl (Desipramine) 10 mg PO BEDTIME [facility] Last Admin: 09/17/18 20:11 Dose: Not Given Duloxetine HCl (Cymbalta) 60 mg PO DAILY [facility] Last Admin: 09/18/18 09:54 Dose: 60 mg Gabapentin (Neurontin) 900 mg PO BID@0900,1500 [facility] Last Admin: 09/18/18 09:54 Dose: 900 mg Gabapentin (Neurontin) 800 mg PO BEDTIME [facility] Last Admin: 09/17/18 20:12 Dose: 800 mg Guaifenesin (Mucinex) 600 mg PO BID [facility] Last Admin: 09/18/18 09:54 Dose: 600 mg Guaifenesin/Codeine Phosphate (Robitussin Ac) 10 ml PO Q4H PRN PRN Reason: Cough Last Admin: 09/16/18 11:03 Dose: 10 ml Azithromycin 500 mg/ Sodium (Chloride) 250 mls @ 250 mls/hr IV Q24H [facility] Last Admin: 09/18/18 02:27 Dose: 250 mls/hr Piperacillin/Tazobactam/ (Dextrose 3.375 gm/ Premix) 50 mls @ 100 mls/hr IV Q6H [facility] Last Admin: 09/18/18 10:41 Dose: 100 mls/hr Sodium Chloride (Normal Saline) 1,000 mls @ 25 mls/hr IV ASDIRECTED [facility] Last Admin: 09/16/18 19:25 Dose: 25 mls/hr Ibuprofen (Motrin) 600 mg PO Q6H PRN PRN Reason: Pain/Fever Labetalol HCl (Normodyne) 100 mg PO BID [facility] Last Admin: 09/18/18 09:55 Dose: 100 mg Lorazepam (Ativan) 0.5 mg IVPUSH Q4H PRN PRN Reason: Nausea/Vomiting Last Admin: 09/16/18 09:07 Dose: 0.5 mg Magnesium Hydroxide (Milk Of Magnesia) 30 ml PO Q12H PRN PRN Reason: Constipation Ondansetron HCl (Zofran Odt) 4 mg PO Q6H PRN PRN Reason: Nausea able to take PO Ondansetron HCl (Zofran) 4 mg IV Q6H PRN PRN Reason: Nausea/Vomiting Pantoprazole Sodium (Protonix) 40 mg PO ACBREAKFAST [facility] Last Admin: 09/18/18 09:54 Dose: 40 mg Rivaroxaban (Xarelto) 20 mg PO QPM [facility] Last Admin: 09/17/18 17:13 Dose: 20 mg Senna/Docusate Sodium (Senna Plus) 2 tab PO BID PRN PRN Reason: Constipation Trospium (Sanctura) 20 mg PO BID [facility] Last Admin: 09/18/18 09:54 Dose: 20 mg Discontinued Medications Albuterol (Proventil Neb Soln) 2.5 mg NEB Q4H PRN PRN Reason: Shortness Of Breath/wheezing Albuterol (Proventil Neb Soln) Confirm Administered Dose 2.5 mg .ROUTE .STK-MED ONE Stop: 09/16/18 12:21 Last Admin: 09/16/18 12:31 Dose: 2.5 mg Albuterol (Proventil Neb Soln) 2.5 mg NEB ONETIME ONE Stop: 09/16/18 12:16 Last Admin: 09/16/18 12:15 Dose: 2.5 mg Fentanyl (Sublimaze) Confirm Administered Dose 100 mcg .ROUTE .STK-MED ONE Stop: 09/16/18 13:26 Lactated Ringer's (Ringers, Lactated) 1,000 mls @ 999 mls/hr IV ASDIRECTED [facility] Last Admin: 09/15/18 23:30 Dose: 999 mls/hr Piperacillin Sod/Tazobactam (Sod 4.5 gm/ Sodium Chloride) 100 mls @ 100 mls/hr IV ONETIME ONE Stop: 09/15/18 23:00 Last Admin: 09/15/18 23:30 Dose: 100 mls/hr Piperacillin Sod/Tazobactam (Sod 3.375 gm/ Sodium Chloride) 50 mls @ 100 mls/ hr IV Q6H [facility] Last Admin: 09/16/18 04:37 Dose: 100 mls/hr Sodium Chloride (Normal Saline) 1,000 mls @ 125 mls/hr IV ASDIRECTED [facility] Last Admin: 09/16/18 12:16 Dose: 125 mls/hr Ibuprofen (Motrin) 600 mg PO ONETIME ONE Stop: 09/15/18 23:50 Last Admin: 09/16/18 00:01 Dose: 600 mg Lidocaine (Lta 360 Kit Top Soln) Confirm Administered Dose 4 ml .ROUTE .STK-MED ONE Stop: 09/16/18 13:25 Lidocaine HCl (Xylocaine 2% Viscous) Confirm Administered Dose 15 ml .ROUTE .STK -MED ONE Stop: 09/16/18 13:22 Last Admin: 09/16/18 14:00 Dose: 15 ml Lidocaine HCl (Xylocaine 4% Top Soln) Confirm Administered Dose 50 ml .ROUTE .STK-MED ONE Stop: 09/16/18 13:22 Last Admin: 09/16/18 14:00 Dose: 50 ml Lorazepam (Ativan) 1 mg IVPUSH ONETIME ONE Stop: 09/16/18 00:03 Last Admin: 09/16/18 00:08 Dose: 1 mg Midazolam HCl (Versed 1 Mg/Ml) Confirm Administered Dose 2 mg .ROUTE .STK-MED ONE Stop: 09/16/18 13:26 Propofol (Diprivan 20 Ml) Confirm Administered Dose 200 mg .ROUTE .STK-MED ONE Stop: 09/16/18 13:26 - Exam Quality Assessment: No: Supplemental Oxygen General: Alert, Oriented, Cooperative, No Acute Distress Lungs: Clear to Auscultation, Normal Respiratory Effort Cardiovascular: Regular Rate, Regular Rhythm GI/Abdominal Exam: Soft, No Distention Extremities: No Pedal Edema Psy/Mental Status: Alert, Normal Affect - Problem List & Annotations (1) Acute bronchitis SNOMED Code(s): 39817017 Code(s): J20.9 - ACUTE BRONCHITIS, UNSPECIFIED Status: Acute Current Visit: Yes Qualifiers: Bronchitis organism: unspecified organism Qualified Code(s): J20.9 - Acute bronchitis, unspecified (2) Sepsis SNOMED Code(s): 82266490 Code(s): A41.9 - SEPSIS, UNSPECIFIED ORGANISM Status: Acute Current Visit : Yes Qualifiers: Sepsis type: sepsis due to unspecified organism Sepsis acute organ dysfunction status: without acute organ dysfunction Qualified Code(s): A41.9 - Sepsis, unspecified organism (3) Acute respiratory failure with hypoxia SNOMED Code(s): 80203374, 195869775 Code(s): J96.01 - ACUTE RESPIRATORY FAILURE WITH HYPOXIA Status: Acute Current Visit: Yes (4) Quadriplegia following spinal cord injury SNOMED Code(s): 66723800 Code(s): G82.50 - QUADRIPLEGIA, UNSPECIFIED Status: Chronic Current Visit : Yes (5) Neurogenic bladder SNOMED Code(s): 620326339 Code(s): N31.9 - NEUROMUSCULAR DYSFUNCTION OF BLADDER, UNSPECIFIED Status: Chronic Current Visit: Yes - Problem List Review Problem List Initiated/Reviewed/Updated: Yes - My Orders Last 24 Hours: My Active Orders 09/17/18 12:00 guaiFENesin [Mucinex] 600 mg PO BID 09/19/18 05:00 BASIC METABOLIC PANEL,BMP [CHEM] Timed CBC W/O DIFF,HEMOGRAM [HEME] Timed (1) - Plan Plan:: ASSESSMENT AND PLAN - Acute bronchitis with sepsis - sepsis seems to have resolved. Secretions better after bronchoscopy yesterday. Gram stain from secretions revealed gram-negative diplococci but identification is pending. White blood cell count better today. -Antibiotic coverage with Pip/Tazo and azithromycin -Follow-up cultures from bronchoscopy, just antibiotics as indicated based on culture results -Twice daily guaifenesin -Supplement oxygen -IV fluids at to keep open -Mucomyst and duo nebs Urine culture positive for ESBL Klebsiella - patient did not have usual symptoms of urinary tract infection and I doubt this is an actual pathogen but more likely a colonizer. I do not believe we have to aggressively treat this bacteria at this time. Quadriplegia as the result of a traumatic injury - accident happened in 2009. Minimal movement of right arm but no movement of left arm or legs. 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 -Continue home medications -Continue home care at time of discharge Sacral ulcer - patient reports this is chronic and slowly healing. -Local wound cares Foot ulceration and callus - left foot has a large callus on the lateral portion and right foot has a large eschar on the medial portion. Seem to be related to chronic pressure issues. 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 Jorge in [place] Wilmer Castillo M.D.
[2018-09-18] MEDS: Codeine/guaiFENesin 100mg-10 MG/5 ML Syrup 10 ML Cup PO PRN (13:01)
[2018-09-18] MEDS: Sodium Chloride 0.9% 1,000 ML IV SCH (14:25)
[2018-09-18] MEDS: Rivaroxaban 10 MG Tab PO SCH (17:28)
[2018-09-18] MEDS: Gabapentin 400 MG Cap PO SCH (20:29)
[2018-09-19] MEDS: Azithromycin 500 MG in Sodium Chloride 0.9% 250 ML IV SCH (02:12)
[2018-09-19] MEDS: Piperacillin/Tazobactam/Dext 3.375 GM in Premix Bag 1 BAG IV SCH ×2 (05:35→10:31)
[2018-09-19] MEDS: Albuterol/Ipratropium 3.0-0.5 MG/3 ML Neb Soln NEB SCH ×3 (07:14→14:35)
[2018-09-19] MEDS: Acetylcysteine 20% 200 MG/ML 4 ML Nebulizer Soln SDV NEB SCH ×3 (07:14→14:36)
[2018-09-19] MEDS: Gabapentin 300 MG Cap PO SCH (09:20)
[2018-09-19] MEDS: Labetalol 100 MG Tab PO SCH (09:20)
[2018-09-19] MEDS: Pantoprazole 40 MG Tab.CR PO SCH (09:21)
[2018-09-19] MEDS: DULoxetine 30 MG Cap PO SCH (09:21)
[2018-09-19] MEDS: Trospium 20 MG Tab PO SCH (09:21)
[2018-09-19] MEDS: guaiFENesin 600 MG Tab.ER PO SCH (09:21)
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
== END 2018-09-19 14:50 | disposition home or self-care (01) | DRG 871 ==
LOC: JP.ED 21:41 → JP.MS 09-16 00:31 → UNDOADMIN 09-16 00:31 → JP.MS 09-16 01:32 → UNDODISIN 09-19 14:50
PROVIDERS: ADMIT Internal Medicine; ATTEND Internal Medicine
PROC: 0B9M7ZX Drainage of Bilateral Lungs, Via Natural or Artificial Opening, Diagnostic (ICD-10-PCS; principal; 2018-09-16)
PROC: 0BC18ZZ Extirpation of Matter from Trachea, Via Natural or Artificial Opening Endoscopic (ICD-10-PCS; 2018-09-16)
PROC: 0T29X0Z Change Drainage Device in Ureter, External Approach (ICD-10-PCS; 2018-09-16)
DX: A41.9 Sepsis, unspecified organism (principal); J96.01 Acute respiratory failure with hypoxia; G82.50 Quadriplegia, unspecified; E87.2 Acidosis; J20.9 Acute bronchitis, unspecified; S14.109S Unspecified injury at unspecified level of cervical spinal cord, sequela; V89.2XXS Person injured in unspecified motor-vehicle accident, traffic, sequela; Z87.440 Personal history of urinary (tract) infections; Z93.6 Other artificial openings of urinary tract status; Z93.3 Colostomy status; Z86.718 Personal history of other venous thrombosis and embolism; Z79.01 Long term (current) use of anticoagulants; N31.9 Neuromuscular dysfunction of bladder, unspecified; I10 Essential (primary) hypertension; L89.159 Pressure ulcer of sacral region, unspecified stage; L89.899 Pressure ulcer of other site, unspecified stage; B96.1 Klebsiella pneumoniae [K. pneumoniae] as the cause of diseases classified elsewhere; B95.4 Other streptococcus as the cause of diseases classified elsewhere; Z88.1 Allergy status to other antibiotic agents; Z79.899 Other long term (current) drug therapy
CPT/HCPCS: 36415; 71045; 80053; 83605; 83880; 85025; 86140; 87040 ×2; 93005; 96365; 96375; 99284; A9270; J2060; J2543; J7030; J7120; 31720; 80048; 81001; 85027; 87015; 87070; 87077; 87086; 87088; 87102; 87116; 87186; 87205; 87206; 87220; 93010; 94640; J0456; J2250; J2704; J3010; J7050; J7620-GY